=== PATIENT | male | born 1965 | race Caucasian/White ===

== ENCOUNTER 2017-12-11 16:01 | Emergency (ER) | payer OTHER, MEDICAID, SELFPAY ==
[2017-12-11 16:05] VITALS: BP 128/86; PULSE 76; RESP 13; TEMP 36.7; O2SAT 99
--- NOTE | 2017-12-11 16:40 | PC.NURSE ---
diagnosed with bipolar in the past, not taking meds at this time. pt feeling hopeless and no control in life, depression. has been having suicidal thoughts, strangeling neck, but not acted on it. denies taking any substance, pt willing to talk to someone, pt fearing going home, states, its all the same trap! pt denies injuries at this time, denies taking overdose on drugs. last contacted [facility] a month ago, evaluated and treated at [facility] 5-6 years ago. at this time, pt cooperative with care, with good eye contact, calm. reporting has not eaten. will get snacks for the pt.
--- NOTE | 2017-12-11 16:48 | ED_ITS ---
HPI - Anxiety <NAUN Willis - Last Filed: 12/11/17 22:24> General Chief Complaint: Anxiety Stated Complaint: ANXIOUS,PANIC,HEAD PRESSURE Time Seen by Provider: 12/11/17 16:48 Source: patient Mode of arrival: ambulatory Limitations: no limitations History of Present Illness HPI narrative: 52-year-old male with history of bipolar resume and depression that is a part-time smoker here for complaint of feeling depressed, anxious and also having suicidal ideation. He reports that he has been feeling like this for quite awhile now. He states that he has recently gone through a divorce. He states that for started after his ex attempted to commit suicide approximately 1 year ago. He states he does have a plan he states he would use a sheet to choke himself to with. However he does not feel like he can not act on it at this timeframe. He does agree to safety. Offered inpatient service to him and he states that he would have to take care of his dog 1st. He denies any other concerns or complaints at this time. He denies any recent alcohol or drug use. He denies any homicidal ideations. Review of Systems <NAUN Willis - Last Filed: 12/11/17 22:24> Constitutional Denies chills, Denies fever(s), Denies lethargy and Denies weakness Eyes Denies change in vision, Denies eye discharge, Denies irritation and Denies loss of vision ENT Ears, Nose, Mouth, and Throat: Denies change in voice, Denies neck pain and Denies sore throat Cardiovascular Denies chest pain, Denies irregular heart rhythm, Denies lightheadedness, Denies palpitations, Denies dyspnea, Denies dyspnea on exertion and Denies orthopnea Respiratory Denies cough, Denies dyspnea, Denies dyspnea on exertion and Denies wheezing Gastrointestinal Gastrointestinal: Denies abdominal pain, Denies change in bowel habits, Denies diarrhea, Denies nausea and Denies vomiting Genitourinary Denies hematuria, Denies flank pain, Denies urinary incontinence and Denies urinary urgency Musculoskeletal Denies neck pain Integumentary/Breasts Denies pruritus, Denies erythema, Denies rash and Denies wounds Neurologic Denies loss of vision and Denies weakness Psychiatric Comments: Suicidal ideation and depression Endocrine Denies palpitations Hematologic/Lymphatic Denies easy bruising Allergic/Immunologic Denies wheezing Exam <NAUN Willis - Last Filed: 12/11/17 22:24> Initial Vital Signs Initial Vital Signs: Vital Signs Temperature 98.1 F 12/11/17 16:05 Pulse Rate 76 12/11/17 16:05 Respiratory Rate 13 12/11/17 16:05 Blood Pressure 128/86 12/11/17 16:05 Pulse Oximetry 99 12/11/17 16:05 Const General: cooperative and well developed Nutritional Appearance: well nourished Orientation: alert, awake, oriented x3 and not confused [facility] Mouth: oral mucosae normal and moist mucous membranes Eyes Conjunctivae: conjunctivae normal Sclera: sclerae normal Pupils: PERRL EOM: EOM intact bilaterally Resp Effort & Inspection: normal respiratory effort, able to speak in complete sentences, no respiratory distress and no use of accessory muscles Auscultation: clear to auscultation bilaterally, no rales, no rhonchi and no wheezes Cardio Rate: regular rate Rhythm: regular rhythm Heart Sounds: no click, no gallops, no murmurs and no rubs Pulses: normal peripheral pulses GI Inspection: non-distended Palpation: soft, no hepatosplenomegaly, No guarding, No pulsatile mass and No tender Auscultation: normal bowel sounds Skin General: no rashes or lesions noted, No jaundice and No petechiae Neuro General: alert, oriented x3, gait normal and no focal motor deficits Speech: speech normal Psych Appearance: well kempt Mental Status: mental status grossly normal and other (sad) Speech and Movement: speech and movement normal Mood: other (sad) Affect: sad Attitude: cooperative Thought Process: normal Thought Content: normal Judgment: judgment good <Hilton June DO - Last Filed: 12/12/17 07:32> Initial Vital Signs Initial Vital Signs: Vital Signs Temperature 98.1 F 12/11/17 16:05 Pulse Rate 76 12/11/17 16:05 Respiratory Rate 13 12/11/17 16:05 Blood Pressure 128/86 12/11/17 16:05 Pulse Oximetry 99 12/11/17 16:05 Course <NAUN Willis - Last Filed: 12/11/17 22:24> Vital Signs - 8 hr 12/11/17 16:05 12/11/17 19:00 Temperature 98.1 F Pulse Rate 76 73 Respiratory Rate 13 16 Blood Pressure 128/86 Blood Pressure [Left Arm] 128/86 Pulse Oximetry 99 99 <Hilton June DO - Last Filed: 12/12/17 07:32> Vital Signs - 8 hr 12/11/17 16:05 12/11/17 19:00 Temperature 98.1 F Pulse Rate 76 73 Respiratory Rate 13 16 Blood Pressure 128/86 Blood Pressure [Left Arm] 128/86 Pulse Oximetry 99 99 MDM - Anxiety <NAUN Willis - Last Filed: 12/11/17 22:24> MDM Narrative Medical decision making narrative: Discussed inpatient services with him and patient states that he would not be able do so at this time could seek has to take care of his dog 1st. He did agree to safety over the next several days until he can get followed up. Discussed case with CD makes PE will call patient tomorrow on the phone to check up on him and get him an appointment on Wednesday for further evaluation and treatment. Patient is given at 1 [phone] crisis number as resource to call if things change in the short term or return to the emergency room. Patient is agreeable to the plan. Discharge Plan Departure Patient Disposition: Home Clinical Impression: Suicidal ideations Discharge Date/Time: 12/11/17 19:13 Interventions: ED Discharge Assessment Last Done: 12/11/17 19:13 Instructions: Depression Activity Restrictions/Additional Instructions: Mental health services will contact you tomorrow to check on new ensure year doing okay. They will schedule appointment on Wednesday for here for further evaluation and treatment and counseling. Call 1- [phone]. Which is crisis hotline if you need further assistance or if need help, you may also return to the emergency room for any worsening symptoms. Follow up with her primary care provider as well. Referrals: [facility] Jovon Benedict [Outside] <Hilton June DO - Last Filed: 12/12/17 07:32> Cosign ED Attending Raoulature Attestation: I was available for consultation during this patient's emergency department encounter
[2017-12-11 19:00] VITALS: BP 128/86; PULSE 73; RESP 16; O2SAT 99
--- NOTE | 2017-12-11 19:04 | PC.NURSE ---
pt states, that he will follow up with [facility] on wednesday, he needs to take care of dog first. pacing in the room, but cooperative with care.follows command
== END 2017-12-11 19:13 | disposition home or self-care (01) ==
PROVIDERS: Emergency Provider Nurse Practitioner Family
DX: R45.851 Suicidal ideations (principal)
CPT/HCPCS: 99282

== ENCOUNTER 2022-10-26 14:27 | Emergency (ER) | payer OTHER, MEDICAID, SELFPAY ==
[2022-10-26 14:45] VITALS: BP 162/101; PULSE 95; RESP 18; TEMP 37.1; O2SAT 99; BMI 21.5
--- NOTE | 2022-10-26 15:03 | DI.CT.S_ITS ---
PROCEDURE: CT ABDOMEN PELVIS W CON INDICATIONS: ? R inguinal hernia TECHNIQUE: After the administration of oral and IV contrast, axial sections were acquired from the lung bases to the pubic symphysis. Coronal and sagittal reformats were performed. For radiation dose reduction, the following was used: automated exposure control, adjustment of mA and/or kV according to patient size. COMPARISON: None. FINDINGS: Image quality: Excellent. Lung bases: Unremarkable. Heart: No significant findings. ABDOMEN: Liver: Unremarkable. Low-density nodules in liver are most likely hepatic cysts. Gallbladder: Unremarkable. Biliary ducts: Unremarkable. Pancreas: Unremarkable. Spleen: Unremarkable. Adrenal Glands: Unremarkable. Kidneys and Ureters: Unremarkable. Stomach and Bowel: Stomach, small bowel loops, and colon are unremarkable. Normal appendix. Diverticulosis without acute diverticulitis. Peritoneum: No abnormal intraperitoneal fluid. No free air. Ventral Wall: No hernia. Abdominal Nodes: No retroperitoneal or mesenteric adenopathy by size criteria. Vessels: Aorta and inferior vena cava are normal in size. PELVIS: Pelvic Organs: Prostate is markedly enlarged and heterogeneous in attenuation. Bladder: Unremarkable. Pelvic Nodes: No enlarged lymph nodes. Miscellaneous: Small fat containing inguinal hernias are seen. Hydroceles in scrotum. Bones: Unremarkable. IMPRESSION: 1. Small fat containing inguinal hernias bilaterally. 2. Hydroceles in scrotum. 3. Diverticulosis without diverticulitis. 4. Normal appendix. 5. Prostate is enlarged and heterogeneous. Dictated by: Luis Alberto Duarte M.D. on 10/26/2022 at 15:55 Approved by: Luis Alberto Duarte M.D. on 10/26/2022 at 15:59
--- NOTE | 2022-10-26 16:14 | ED_ITS ---
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 Patient states that it is more prominent when he is standing up versus lying back. Patient denies pain or ten derness at the site of the mass. Patient denies fever, chills, chest pain, shortness of breath, abdominal pain, dysuria, lightheadedness, dizziness, syncope. Related Data Home Medications Medication Instructions Recorded Confirmed No Known Home Medications 10/26/22 10/26/22 Allergies Allergy/AdvReac Type Severity Reaction Status Date / Time erythromycin base Allergy Unknown Verified 10/26/22 14:49 Review of Systems <Kristy Mejia PA-C - Last Filed: 10/26/22 17:26> Review of Systems ROS Unobtainable: All systems reviewed & are unremarkable except as noted in HPI and below Constitutional Constitutional: Denies chills, Denies fatigue, Denies fever(s), Denies frequent falls, Denies lethargy and Denies weakness Eyes Eyes: Denies change in vision, Denies eye discharge, Denies irritation and Denies loss of vision ENT Ears, Nose, Mouth, and Throat: Denies change in voice, Denies dizziness, Denies neck pain, Denies sore throat and Denies throat swelling Cardiovascular Cardiovascular: Denies chest pain, Denies irregular heart rhythm, Denies lightheadedness, Denies palpitations, Denies dyspnea, Denies dyspnea on exertion and Denies orthopnea Respiratory Respiratory: Denies cough, Denies dyspnea, Denies dyspnea on exertion and Denies wheezing Gastrointestinal Gastrointestinal: Reports as per HPI, Denies abdominal pain, Denies change in bowel habits, Denies diarrhea, Denies nausea and Denies vomiting Comments: Right Inguinal mass Genitourinary Genitourinary: Denies hematuria, Denies flank pain, Denies urinary incontinence and Denies urinary urgency Musculoskeletal Musculoskeletal: Denies back pain, Denies muscle weakness, Denies neck pain, Denies numbness and Denies tingling Integumentary/Breasts Skin/Breast: Denies pruritus, Denies erythema, Denies rash and Denies wounds Neurologic Neurologic: Denies behavioral changes, Denies confusion, Denies dizziness, Denies frequent falls, Denies loss of vision, Denies numbness, Denies tingling and Denies weakness Psychiatric Psychiatric: Denies anxiety, Denies behavioral changes, Denies confusion, Denies depression, Denies homicidal ideation and Denies suicidal ideation Endocrine Endocrine: Denies fatigue, Denies flushing and Denies palpitations Hematologic/Lymphatic Hematologic/Lymphatic: Denies easy bruising Allergic/Immunologic Allergic/Immunologic: Denies urticaria, Denies throat swelling and Denies wheezing Patient History <Kristy Mejia PA-C - Last Filed: 10/26/22 17:26> Social History Smoking Status: Current some day smoker Smoking Status: Current some day smoker alcohol intake frequency: a few times a month Substance Use Type: former substance user and marijuana Exam <Kristy Mejia PA-C - Last Filed: 10/26/22 17:26> Narrative Exam Narrative: Const General:?cooperative, healthy appearing and comfortable [facility] Head:?normal to inspection Ears:?hearing grossly normal bilaterally Nose:?external nose normal Face and sinus:?normal facial exam and sinuses nontender Mouth:?oral mucosae normal Throat:?posterior oropharynx normal Eyes General:?appearance normal, both eyes and all related structures Neck Neck:?normal visual inspection and no lymphadenopathy noted Resp Effort & Inspection:?normal respiratory effort Auscultation:?clear to auscultation bilaterally Cardio Rate:?regular rate Rhythm:?regular rhythm GI Abdomen is soft, nondistended. There is a palpable mass in the right inguinal area suspicious for a inguinal hernia. Not tender to palpation. Neuro General:?patient alert, patient awake and patient oriented x3 Initial Vital Signs Initial Vital Signs: Vital Signs Temperature 98.7 F 10/26/22 14:45 Pulse Rate 95 H 10/26/22 14:45 Respiratory Rate 18 10/26/22 14:45 Blood Pressure 162/101 H 10/26/22 14:45 Pulse Oximetry 99 10/26/22 14:45 Oxygen Delivery Method Room Air 10/26/22 14:45 <Betsy Roberts MD - Last Filed: 10/26/22 19:28> Initial Vital Signs Initial Vital Signs: Vital Signs Temperature 98.7 F 10/26/22 14:45 Pulse Rate 95 H 10/26/22 14:45 Respiratory Rate 18 10/26/22 14:45 Blood Pressure 162/101 H 10/26/22 14:45 Pulse Oximetry 99 10/26/22 14:45 Oxygen Delivery Method Room Air 10/26/22 14:45 Course <Kristy Mejia PA-C - Last Filed: 10/26/22 17:26> Orders Ordered: ED Orders 10/26/22 15:03 CT abdomen pelvis w con Stat 10/26/22 16:50 CBC Auto Diff [Complete Blood Count AUTO DIFF] Stat CMP [Comprehensive Metabolic Panel] Stat Lipase Stat Vital Signs Vital signs: Vital Signs - 8 hr 10/26/22 14:45 10/26/22 16:52 10/26/22 16:53 Temperature 98.7 F Pulse Rate 95 H 82 83 Respiratory Rate 18 Blood Pressure 162/101 H Pulse Oximetry 99 99 99 Oxygen Delivery Method Room Air 10/26/22 16:53 10/26/22 17:00 10/26/22 17:00 Temperature Pulse Rate 80 Respiratory Rate Blood Pressure 131/86 121/79 Pulse Oximetry 97 Oxygen Delivery Method <Betsy Roberts MD - Last Filed: 10/26/22 19:28> Orders Ordered: ED Orders 10/26/22 15:03 CT abdomen pelvis w con Stat 10/26/22 16:50 CBC Auto Diff [Complete Blood Count AUTO DIFF] Stat CMP [Comprehensive Metabolic Panel] Stat Lipase Stat Vital Signs Vital signs: Vital Signs - 8 hr 10/26/22 14:45 10/26/22 16:52 10/26/22 16:53 Temperature 98.7 F Pulse Rate 95 H 82 83 Respiratory Rate 18 Blood Pressure 162/101 H Pulse Oximetry 99 99 99 Oxygen Delivery Method Room Air 10/26/22 16:53 10/26/22 17:00 10/26/22 17:00 Temperature Pulse Rate 80 Respiratory Rate Blood Pressure 131/86 121/79 Pulse Oximetry 97 Oxygen Delivery Method Medical Decision Making <Kristy Mejia PA-C - Last Filed: 10/26/22 17:26> Lab Data 10/26/22 16:50 10/26/22 16:50 Labs: Lab Results 10/26/22 10/26/22 Range/Units 16:50 16:50 WBC 9.7 (4.5-11.0) X10^3/uL RBC 4.04 L (4.5-5.9) X10^6/uL Hgb 12.3 L (13.5-17.5) g/dL Hct 35.5 L (41-53) % MCV 88.0 (80-100) fL MCH 30.4 (26-34) PG MCHC 34.5 (30-36) % RDW 13.4 (11.6-14.8) % Plt Count 182 (150-400) X10^3/uL Neut % (Auto) 73.0 (50-75) % Lymph % (Auto) 20.2 L (25-40) % Chaves % (Auto) 6.1 (3-14) % Eos % (Auto) 0.3 L (2-4) % Baso % (Auto) 0.4 (0-2) % Neut # (Auto) 7100 H (4297-2912) /uL Lymph # (Auto) 2000 (3846-1566) /uL Chaves # (Auto) 600 (0-900) /uL Eos # (Auto) 0 (0-450) /uL Baso # (Auto) 0 (0-100) /uL Sodium 137 (137-145) mmol/L Potassium 3.7 (3.4-5.1) mmol/L Chloride 103 (98-107) mmol/L Carbon Dioxide 27 (22-32) mmol/L BUN 17 (9-20) mg/dL Creatinine 1.12 (0.66-1.25) mg/dL Estimated GFR > 60 (>60) mL/min BUN/Creatinine Ratio 15.2 (6-22) Glucose 114 H (70-100) mg/dL Calcium 9.3 (8.4-10.2) mg/dL Total Bilirubin 0.5 (0.2-1.3) mg/dL AST 24 (17-59) IU/L ALT 15 (<50) IU/L Alkaline Phosphatase 42 (38-126) U/L Total Protein 6.6 (6.3-8.2) g/dL Albumin 4.2 (3.5-5.0) g/dL Globulin 2.4 (1.7-4.1) g/dL Albumin/Globulin Ratio 1.8 (1.0-2.8) Lipase 81 (23-300) U/L MDM Narrative Medical decision making narrative: 56-year-old male with past medical history bipolar disorder presents to the ED with 1 month of right-sided inguinal mass. Concern for inguinal hernia versus other mass versus other. Will obtain UA, labs, CT abdomen pelvis. Will reassess. CT abdomen pelvis shows small fat containing inguinal hernias bilaterally, hydroceles in scrotum, enlarged and heterogeneous prostate. Labs within normal limits. Discussed findings with patient. Recommend follow-up with urology and GI. ED return precautions discussed with patient. Patient verbalized understanding. Medical records reviewed: Yes <Betsy Roberts MD - Last Filed: 10/26/22 19:28> Lab Data Labs: Lab Results 10/26/22 10/26/22 Range/Units 16:50 16:50 WBC 9.7 (4.5-11.0) X10^3/uL RBC 4.04 L (4.5-5.9) X10^6/uL Hgb 12.3 L (13.5-17.5) g/dL Hct 35.5 L (41-53) % MCV 88.0 (80-100) fL MCH 30.4 (26-34) PG MCHC 34.5 (30-36) % RDW 13.4 (11.6-14.8) % Plt Count 182 (150-400) X10^3/uL Neut % (Auto) 73.0 (50-75) % Lymph % (Auto) 20.2 L (25-40) % Chaves % (Auto) 6.1 (3-14) % Eos % (Auto) 0.3 L (2-4) % Baso % (Auto) 0.4 (0-2) % Neut # (Auto) 7100 H (9404-1601) /uL Lymph # (Auto) 2000 (0157-0285) /uL Chaves # (Auto) 600 (0-900) /uL Eos # (Auto) 0 (0-450) /uL Baso # (Auto) 0 (0-100) /uL Sodium 137 (137-145) mmol/L Potassium 3.7 (3.4-5.1) mmol/L Chloride 103 (98-107) mmol/L Carbon Dioxide 27 (22-32) mmol/L BUN 17 (9-20) mg/dL Creatinine 1.12 (0.66-1.25) mg/dL Estimated GFR > 60 (>60) mL/min BUN/Creatinine Ratio 15.2 (6-22) Glucose 114 H (70-100) mg/dL Calcium 9.3 (8.4-10.2) mg/dL Total Bilirubin 0.5 (0.2-1.3) mg/dL AST 24 (17-59) IU/L ALT 15 (<50) IU/L Alkaline Phosphatase 42 (38-126) U/L Total Protein 6.6 (6.3-8.2) g/dL Albumin 4.2 (3.5-5.0) g/dL Globulin 2.4 (1.7-4.1) g/dL Albumin/Globulin Ratio 1.8 (1.0-2.8) Lipase 81 (23-300) U/L Discharge Plan Departure Patient Disposition: Home Clinical Impression: Inguinal hernia Instructions: Groin Hernia -- Adult Activity Restrictions/Additional Instructions: You were evaluated in the ED today for a lower abdominal mass. Your labs were normal. Your CT abdomen pelvis shows small fat containing inguinal hernias on both sides. There are also hydroceles in the scrotum and your prostate is enlarged. Please follow-up with a GI specialist and urologist as soon as possible. Return to the ED if you have worsening symptoms, abdominal pain, persistent vomiting. Prescriptions: No Action No Known Home Medications Stand Alone Forms: Patient Portal/API <Betsy Roberts MD - Last Filed: 10/26/22 19:28> Cosign ED Attending Melva Attestation: I do not see this patient. I was available at all times for consultation.
[2022-10-26 16:52] VITALS: PULSE 82; O2SAT 99
[2022-10-26 16:53] VITALS: BP 131/86; PULSE 83; O2SAT 99
[2022-10-26 17:00] VITALS: BP 121/79; PULSE 80; O2SAT 97
[2022-10-26 17:04] LABS: Add Manual Diff / Slide Review NO; Basophils Absolute Auto 0 /uL (0-100); Basophils Percent Auto 0.4 % (0-2); Eosinophils Absolute Auto 0 /uL (0-450); Eosinophils Percent Auto 0.3 % (2-4); Hematocrit 35.5 % (41-53); Hemoglobin 12.3 g/dL (13.5-17.5); Lymphocytes Absolute Auto 2000 /uL (1100-4500); Lymphocytes Percent Auto 20.2 % (25-40); Mean Corpuscular HGB Conc 34.5 % (30-36); Mean Corpuscular Hemoglobin 30.4 PG (26-34); Monocytes Absolute Auto 600 /uL (0-900); Monocytes Percent Auto 6.1 % (3-14); Neutrophils Absolute Auto 7100 /uL (1500-7000); Platelet Count 182 X10^3/uL (150-400); Red Blood Cell Count 4.04 X10^6/uL (4.5-5.9); Red Cell Distribution Width 13.4 % (11.6-14.8); White Blood Cell Count 9.7 X10^3/uL (4.5-11.0)
[2022-10-26 17:15] LABS: Alanine Aminotransferase 15 IU/L (<50); Albumin 4.2 g/dL (3.5-5.0); Albumin Globulin Ratio 1.8 (1.0-2.8); Alkaline Phosphatase 42 U/L (38-126); Aspartate Aminotransferase 24 IU/L (17-59); BUN Creatinine Ratio 15.2 (6-22); Bilirubin Total 0.5 mg/dL (0.2-1.3); Blood Urea Nitrogen 17 mg/dL (9-20); Calcium 9.3 mg/dL (8.4-10.2); Carbon Dioxide 27 mmol/L (22-32); Chloride 103 mmol/L (98-107); Estimated Glomerular Filt Rate > 60 mL/min (>60); Globulin 2.4 g/dL (1.7-4.1); Glucose 114 mg/dL (70-100); HEMOLYSIS < 15 (0-50); Lipase 81 U/L (23-300); Potassium 3.7 mmol/L (3.4-5.1); Sodium 137 mmol/L (137-145); Total Protein 6.6 g/dL (6.3-8.2)
== END 2022-10-26 17:29 | disposition home or self-care (01) ==
PROVIDERS: Emergency Provider Student in an Organized Health Care Education/Training Program
DX: K40.90 Unilateral inguinal hernia, without obstruction or gangrene, not specified as recurrent (principal)
CPT/HCPCS: 36415; 74177; 80053; 83690; 85025; 99283; 99284; Q9967

== ENCOUNTER → 2023-05-10 14:06 | Outpatient (CLI) | payer OTHER, MEDICAID, SELFPAY ==
[2023-05-10 15:05] LABS: Add Manual Diff / Slide Review NO; Basophils Absolute Auto 0 /uL (0-100); Basophils Percent Auto 0.3 % (0-2); Eosinophils Absolute Auto 0 /uL (0-450); Eosinophils Percent Auto 0.5 % (2-4); Hematocrit 38.5 % (41-53); Hemoglobin 13.1 g/dL (13.5-17.5); Lymphocytes Absolute Auto 2400 /uL (1100-4500); Lymphocytes Percent Auto 28.8 % (25-40); Mean Corpuscular Hemoglobin 29.8 PG (26-34); Mean Corpuscular Volume 87.6 fL (80-100); Monocytes Absolute Auto 600 /uL (0-900); Monocytes Percent Auto 7.4 % (3-14); Neutrophils Absolute Auto 5200 /uL (1500-7000); Platelet Count 205 X10^3/uL (150-400); Red Blood Cell Count 4.39 X10^6/uL (4.5-5.9); Red Cell Distribution Width 13.5 % (11.6-14.8); White Blood Cell Count 8.3 X10^3/uL (4.5-11.0)
[2023-05-10 15:13] LABS: Hemoglobin A1C% w Est Avg Glu 5.2 % (4.0-6.0)
[2023-05-10 15:28] LABS: Alanine Aminotransferase 21 IU/L (<50); Albumin 4.3 g/dL (3.5-5.0); Albumin Globulin Ratio 1.6 (1.0-2.8); Alkaline Phosphatase 51 U/L (38-126); Aspartate Aminotransferase 25 IU/L (17-59); Bilirubin Total 0.6 mg/dL (0.2-1.3); Blood Urea Nitrogen 17 mg/dL (9-20); Calcium 9.3 mg/dL (8.4-10.2); Carbon Dioxide 31 mmol/L (22-32); Chloride 105 mmol/L (98-107); Cholesterol 196 mg/dL (140-199); Estimated Glomerular Filt Rate > 60 mL/min (>60); Globulin 2.7 g/dL (1.7-4.1); Glucose 91 mg/dL (70-100); HDL Cholesterol 63 mg/dL (40-60); HEMOLYSIS < 15 (0-50); LDL Cholesterol Calculated 111 mg/dL (<100); Potassium 4.7 mmol/L (3.4-5.1); Sodium 139 mmol/L (137-145); Triglycerides 108 mg/dL (35-150)
[2023-05-10 15:56] LABS: Prostate Specific Antigen 4.06 ng/mL (0.10-4.00)
[2023-05-10 17:12] LABS: HIV 1 & 2 Ab/Ag 4th Gen Combo NEGATIVE (NEGATIVE); Hep C Virus Ab w/Reflex Quant NEGATIVE s/c (NEGATIVE)
== END ==
PROVIDERS: PCP Family Medicine; Referring Provider Family Medicine; Visit Provider Family Medicine
DX: Z76.89 Persons encountering health services in other specified circumstances (principal); Z11.59 Encounter for screening for other viral diseases; Z11.4 Encounter for screening for human immunodeficiency virus [HIV]; Z13.220 Encounter for screening for lipoid disorders; Z12.5 Encounter for screening for malignant neoplasm of prostate; Z13.1 Encounter for screening for diabetes mellitus
CPT/HCPCS: 36415; 80053; 80061; 83036; 84153; 85025; 86803; 87389

== ENCOUNTER → 2023-07-01 11:19 | Outpatient (CLI) | payer OTHER, MEDICAID, SELFPAY | PROVIDERS: PCP Family Medicine; Referring Provider Family Medicine; Visit Provider Family Medicine | DX: Z12.5 Encounter for screening for malignant neoplasm of prostate (principal) | CPT/HCPCS: 36415; G0103 ==

== ENCOUNTER 2024-05-20 22:47 | Emergency (ER) | payer OTHER, SELFPAY ==
[2024-05-20 22:49] VITALS: BP 153/92; PULSE 81; O2SAT 93
[2024-05-20 22:51] VITALS: BP 143/90; PULSE 86; O2SAT 93
[2024-05-20 22:54] VITALS: BMI 27.8
--- NOTE | 2024-05-20 22:57 | DI.RAD.S_ITS ---
PROCEDURE: XR CHEST 1V INDICATIONS: chest pain TECHNIQUE: One view of the chest was acquired. COMPARISON: None. FINDINGS: Surgical changes and devices: None. Lungs and pleura: Lungs are clear. No pleural effusions or pneumothorax. Mediastinum: Mediastinal contours appear normal. Heart size is normal. Bones and chest wall: No suspicious bony lesions. Overlying soft tissues appear unremarkable. IMPRESSION: No acute cardiopulmonary abnormality is seen. Dictated by: Adal Ortiz M.D. on 05/21/2024 at 0:52 Approved by: Adal Ortiz M.D. on 05/21/2024 at 0:53
[2024-05-20 23:00] VITALS: BP 165/101; PULSE 80; O2SAT 92
--- NOTE | 2024-05-20 23:22 | EKG_ITS ---
[facility] [address] [place] [id number] Test Date: 2024-05-20 Pat Name: Ilir Clark Department: 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
[2024-05-20] MEDS: PANTOPRAZOLE 40 MG VIAL IV (23:23)
[2024-05-20 23:25] LABS: Add Manual Diff / Slide Review NO; Basophils Absolute Auto 0 /uL (0-100); Basophils Percent Auto 0.3 % (0-2); Eosinophils Absolute Auto 0 /uL (0-450); Eosinophils Percent Auto 0.1 % (2-4); Hematocrit 43.5 % (41-53); Lymphocytes Absolute Auto 1300 /uL (1100-4500); Lymphocytes Percent Auto 8.7 % (25-40); Mean Corpuscular HGB Conc 34.4 % (30-36); Mean Corpuscular Hemoglobin 29.8 PG (26-34); Mean Corpuscular Volume 86.8 fL (80-100); Monocytes Absolute Auto 800 /uL (0-900); Monocytes Percent Auto 5.7 % (3-14); Neutrophils Absolute Auto 12400 /uL (1500-7000); Neutrophils Percent Auto 85.2 % (50-75); Platelet Count 218 X10^3/uL (150-400); Red Blood Cell Count 5.01 X10^6/uL (4.5-5.9); Red Cell Distribution Width 13.6 % (11.6-14.8); White Blood Cell Count 14.5 X10^3/uL (4.5-11.0)
[2024-05-20 23:30] VITALS: BP 135/84; PULSE 81; O2SAT 93
[2024-05-20 23:33] LABS: Lactate (Lactic Acid) 1.2 mmol/L (0.7-2.1)
[2024-05-20 23:34] LABS: Alanine Aminotransferase 23 IU/L (<50); Albumin 4.9 g/dL (3.5-5.0); Albumin Globulin Ratio 1.8 (1.0-2.8); Alkaline Phosphatase 62 U/L (38-126); Aspartate Aminotransferase 28 IU/L (17-59); BUN Creatinine Ratio 13.6 (6-22); Bilirubin Total 0.6 mg/dL (0.2-1.3); Blood Urea Nitrogen 15 mg/dL (9-20); Calcium 9.9 mg/dL (8.4-10.2); Carbon Dioxide 31 mmol/L (22-32); Chloride 98 mmol/L (98-107); Estimated Glomerular Filt Rate > 60 mL/min (>60); Globulin 2.8 g/dL (1.7-4.1); Glucose 117 mg/dL (70-100); HEMOLYSIS < 15 (0-50); Lipase 88 U/L (23-300); Magnesium 1.7 mg/dL (1.6-2.3); Potassium 4.2 mmol/L (3.4-5.1); Sodium 140 mmol/L (137-145); Total Protein 7.7 g/dL (6.3-8.2)
[2024-05-20 23:46] LABS: Troponin I < 0.012 ng/mL (0.01-0.034)
[2024-05-21] VITALS (8 sets, daily range): BP systolic 116–149; BP diastolic 67–88; PULSE 66–83; RESP 18; O2SAT 93–96
--- NOTE | 2024-05-21 02:20 | ED_ITS ---
HPI - Nausea/Vomiting/Diarrhea General Chief complaint: Nausea/Vomiting/Diarrhea Stated complaint: GERD Time Seen by Provider: 05/20/24 22:47 Source: patient Mode of arrival: EMS History of Present Illness HPI Narrative: 58-year-old gentleman with a history of bipolar depression and anxiety presents from [facility] today complaining chest pressure with reflux symptoms. She states he has had reflux for a number of years, today he has had increased reflux type symptoms with an episode of nausea and vomiting in the evening today. Concerned that he is having some chest pressure and comes in for further evaluation. He has not describing any exertional dyspnea, orthopnea has not had palpitations. No fevers, cough, chills. He has intermittently been on proton pump inhibitors in the past but does not currently taking anything. Related Data Home Medications Medication Instructions Recorded Confirmed lurasidone 20 mg tablet 20 mg PO QPM 04/17/24 04/17/24 Previous Rx's Medication Instructions Recorded omeprazole 40 mg capsule,delayed 40 mg PO DAILY #14 caps 05/21/24 release Allergies Allergy/AdvReac Type Severity Reaction Status Date / Time erythromycin base Allergy Unknown Verified 04/17/24 13:51 Review of Systems Review of Systems Narrative: Pertinent positive and negative findings as per HPI Patient History Medical History (Updated 05/21/24 @ 02:36 by Lolita Fernández MD) Anxiety disorder, unspecified Bipolar I disorder, current or most recent episode depressed, in partial remission Social History Smoking Status: Current some day smoker Smoking Status: Current some day smoker alcohol intake frequency: a few times a month Exam Initial Vital Signs Initial Vital Signs: Vital Signs Pulse Rate 81 05/20/24 22:49 Blood Pressure 153/92 H 05/20/24 22:49 Pulse Oximetry 93 05/20/24 22:49 General: in no acute distress. Able to give a complete and coherent history. Well-nourished well-developed HEENT: Moist mucous membranes, normal sclera with reactive pupils, Respiratory: Lungs are clear to auscultation, no wheezing no rales no rhonchi. Full and symmetrical air movement Cardiac: Regular rate and rhythm no murmurs no bruits Abdomen: Soft, nontender, no rebound or guarding, no flank pain Skin: Pale, Warm and dry, no rashes Neurologic: Grossly neurologically intact with no obvious asymmetries or abnormalities Extremities: No trauma, well perfused Psych: Anxious, somewhat flat affect and poor eye contact but appropriate speech fluency and thought content Course Orders Ordered: ED Orders 05/20/24 22:57 XR chest 1V Stat EKG-12 Lead Stat 05/20/24 23:07 Complete Blood Count AUTO DIFF Stat Comprehensive Metabolic Panel Stat Lactate (Lactic Acid) Stat Lipase Stat Magnesium Stat Troponin I Stat Discontinued Medications Pantoprazole Sodium (Pantoprazole 40 Mg Vial) 40 mg IV NOW ONE Stop: 05/20/24 22:57 Last Admin: 05/20/24 23:23 Dose: 40 mg Documented By: Tanner Vital Signs Vital signs: Vital Signs - 8 hr 05/20/24 22:49 05/20/24 22:51 05/20/24 23:00 Pulse Rate 81 86 80 Respiratory Rate Blood Pressure 153/92 H 143/90 H 165/101 H Pulse Oximetry 93 93 92 05/20/24 23:30 05/20/24 23:30 05/21/24 00:00 Pulse Rate 81 69 Respiratory Rate Blood Pressure 135/84 Pulse Oximetry 93 94 05/21/24 00:00 05/21/24 00:30 05/21/24 00:30 Pulse Rate 69 Respiratory Rate Blood Pressure 144/82 H 129/85 Pulse Oximetry 94 05/21/24 01:00 05/21/24 01:00 Pulse Rate 66 Respiratory Rate 18 Blood Pressure 149/80 H Pulse Oximetry 93 MDM - Nausea/Vomiting/Diarrhea Lab Data 05/20/24 23:07 05/20/24 23:07 Labs: Lab Results 05/20/24 Range/Units 23:07 WBC 14.5 H (4.5-11.0) X10^3/uL RBC 5.01 (4.5-5.9) X10^6/uL Hgb 15.0 (13.5-17.5) g/dL Hct 43.5 (41-53) % MCV 86.8 (80-100) fL MCH 29.8 (26-34) PG MCHC 34.4 (30-36) % RDW 13.6 (11.6-14.8) % Plt Count 218 (150-400) X10^3/uL Neut % (Auto) 85.2 H (50-75) % Lymph % (Auto) 8.7 L (25-40) % Charles % (Auto) 5.7 (3-14) % Eos % (Auto) 0.1 L (2-4) % Baso % (Auto) 0.3 (0-2) % Neut # (Auto) 28117 H (3008-2630) /uL Lymph # (Auto) 1300 (9984-9768) /uL Charles # (Auto) 800 (0-900) /uL Eos # (Auto) 0 (0-450) /uL Baso # (Auto) 0 (0-100) /uL Sodium 140 (137-145) mmol/L Potassium 4.2 (3.4-5.1) mmol/L Chloride 98 (98-107) mmol/L Carbon Dioxide 31 (22-32) mmol/L BUN 15 (9-20) mg/dL Creatinine 1.10 (0.66-1.25) mg/dL Estimated GFR > 60 (>60) mL/min BUN/Creatinine Ratio 13.6 (6-22) Glucose 117 H (70-100) mg/dL Lactate 1.2 (0.7-2.1) mmol/L Calcium 9.9 (8.4-10.2) mg/dL Magnesium 1.7 (1.6-2.3) mg/dL Total Bilirubin 0.6 (0.2-1.3) mg/dL AST 28 (17-59) IU/L ALT 23 (<50) IU/L Alkaline Phosphatase 62 (38-126) U/L Troponin I < 0.012 (0.01-0.034) ng/mL Total Protein 7.7 (6.3-8.2) g/dL Albumin 4.9 (3.5-5.0) g/dL Globulin 2.8 (1.7-4.1) g/dL Albumin/Globulin Ratio 1.8 (1.0-2.8) Lipase 88 (23-300) U/L MDM Narrative Medical decision making narrative: CC: Chest pressure with reflux symptoms worsening over the course of today Complicating co-morbidities: Anxiety, bipolar depression Data collected from: patient, medic Social determinants of health that may influence the patients condition: Patient lives in [facility] Medical records reviewed: Primary care and Psychiatry notes are reviewed Differential considered: Viral gastroenteritis, increased anxiety, reflux, acute coronary syndrome, unstable angina Exam documented above, pertinent findings include: Patient is somewhat pale, anxious, heart and lungs are benign, belly does not have any significant tenderness no rebound or guarding Lab Test results independently reviewed as above. Pertinent findings: CBC: White count is elevated at 14.5 with 85% neutrophil Chemistries are reassuring, no electrolyte abnormalities Lactic is not elevated Troponin is undetectable Lipase is not elevated Independently reviewed EKG: Sinus rhythm at a rate of 75. No acute ischemic Imaging studies independently reviewed: Chest x-ray is reassuring. Treatments: IV pantoprazole Re-evaluations: Given the leukocytosis, belly is again re-examined. He states that the pantoprazole has essentially resolved his pain, he has no rebound or guarding, no abdominal tenderness. No other source of infection is identified it is time. Discussion: 58-year-old gentleman with increasing reflux symptoms over the last 24 hour culminating in emesis today that made symptoms even worse. Cardiac workup is unremarkable with no suggestion of acute coronary syndrome. No obvious bacterial infection is clearly identified and IV pantoprazole has been helpful in resolving his symptoms. We talked about a 2 week course of omeprazole to try to calm down his current issues and then using omeprazole and/or Tums as needed from there. I did recommend that he follow up with his primary care physician. At this time I am not seeing evidence of sepsis, intra- abdominal infection, acute coronary syndrome, pulmonary embolism or alternate explanation that would require further workup or hospitalization and he is safe for discharge Discharge Plan Departure Patient Disposition: Home Clinical Impression: Chest pain due to GERD Instructions: DI for Heartburn Activity Restrictions/Additional Instructions: Thank you for coming in today Your workup was actually very reassuring. There was no concern for bleeding from your stomach, heart attack or heart attack like syndrome. Your white blood cell count was slightly elevated but on clinical exam I did not find any evidence for acute bacterial infection. We discussed a 2 week course of omeprazole, an acid reduce her medication to see if this might make your heartburn symptoms improve. I have sent a prescription for omeprazole to 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 I would recommend a follow up appointment with your primary care physician. If you find that you are getting worse or develop any new symptoms, please feel free to return to the emergency department for further evaluation. Prescriptions: New omeprazole 40 mg capsule,delayed release(DR/EC) 40 mg PO DAILY Qty: 14 0RF No Action lurasidone 20 mg tablet 20 mg PO QPM Rx Instructions: must administer with food (at least 350 calories) Start with one tablet with dinner each evening for one week Referrals: Edgar Saenz MD [Primary Care Provider] - Stand Alone Forms: Patient Portal/API/Survey
== END 2024-05-21 06:43 | disposition home or self-care (01) ==
PROVIDERS: Emergency Provider Emergency Medicine; PCP Family Medicine
DX: K21.9 Gastro-esophageal reflux disease without esophagitis (principal)
CPT/HCPCS: 36415; 71045; 80053; 83605; 83690; 83735; 84484; 85025; 93005; 93010; 96374; 99284; J2470

== ENCOUNTER → 2024-07-04 09:51 | Outpatient (CLI) | payer OTHER, SELFPAY ==
[2024-07-04 11:10] LABS: Add Manual Diff / Slide Review NO; Basophils Absolute Auto 0 /uL (0-100); Basophils Percent Auto 0.3 % (0-2); Eosinophils Absolute Auto 100 /uL (0-450); Eosinophils Percent Auto 0.9 % (2-4); Hematocrit 40.5 % (41-53); Lymphocytes Absolute Auto 2300 /uL (1100-4500); Lymphocytes Percent Auto 25.4 % (25-40); Mean Corpuscular HGB Conc 34.5 % (30-36); Mean Corpuscular Hemoglobin 29.8 PG (26-34); Mean Corpuscular Volume 86.6 fL (80-100); Monocytes Absolute Auto 600 /uL (0-900); Monocytes Percent Auto 6.6 % (3-14); Neutrophils Absolute Auto 6100 /uL (1500-7000); Neutrophils Percent Auto 66.8 % (50-75); Platelet Count 232 X10^3/uL (150-400); Red Blood Cell Count 4.68 X10^6/uL (4.5-5.9); Red Cell Distribution Width 13.3 % (11.6-14.8); White Blood Cell Count 9.1 X10^3/uL (4.5-11.0)
== END ==
PROVIDERS: PCP Family Medicine; Referring Provider Family Medicine; Visit Provider Family Medicine
DX: D72.829 Elevated white blood cell count, unspecified (principal)
CPT/HCPCS: 36415; 85025

== ENCOUNTER → 2024-07-18 15:59 | Outpatient (CLI) | payer OTHER, SELFPAY ==
[2024-07-18 16:23] LABS: Add Manual Diff / Slide Review NO; Basophils Absolute Auto 0 /uL (0-100); Basophils Percent Auto 0.5 % (0-2); Eosinophils Absolute Auto 100 /uL (0-450); Eosinophils Percent Auto 0.7 % (2-4); Hematocrit 41.2 % (41-53); Hemoglobin 13.8 g/dL (13.5-17.5); Lymphocytes Absolute Auto 2000 /uL (1100-4500); Lymphocytes Percent Auto 23.7 % (25-40); Mean Corpuscular HGB Conc 33.5 % (30-36); Mean Corpuscular Hemoglobin 29.2 PG (26-34); Mean Corpuscular Volume 87.2 fL (80-100); Monocytes Absolute Auto 500 /uL (0-900); Monocytes Percent Auto 6.3 % (3-14); Neutrophils Absolute Auto 5800 /uL (1500-7000); Neutrophils Percent Auto 68.8 % (50-75); Platelet Count 200 X10^3/uL (150-400); Red Blood Cell Count 4.72 X10^6/uL (4.5-5.9); Red Cell Distribution Width 13.2 % (11.6-14.8); White Blood Cell Count 8.4 X10^3/uL (4.5-11.0)
[2024-07-18 16:53] LABS: BUN Creatinine Ratio 13.6 (6-22); Blood Urea Nitrogen 14 mg/dL (9-20); Calcium 9.6 mg/dL (8.4-10.2); Carbon Dioxide 24 mmol/L (22-32); Chloride 105 mmol/L (98-107); Cholesterol 224 mg/dL (140-199); Estimated Glomerular Filt Rate > 60 mL/min (>60); Glucose 94 mg/dL (70-99); HDL Cholesterol 46 mg/dL (40-60); HEMOLYSIS < 15 (0-50); LDL Cholesterol Calculated 144 mg/dL (<100); Potassium 4.4 mmol/L (3.4-5.1); Sodium 137 mmol/L (137-145); Triglycerides 172 mg/dL (35-150)
[2024-07-18 17:26] LABS: TSH w/ Reflex to FT4 1.66 uIU/mL (0.47-4.68)
== END ==
PROVIDERS: PCP Family Medicine; Referring Provider Family Medicine; Visit Provider Family Medicine
DX: E78.00 Pure hypercholesterolemia, unspecified (principal); D64.9 Anemia, unspecified; K40.90 Unilateral inguinal hernia, without obstruction or gangrene, not specified as recurrent; Z68.27 Body mass index [BMI] 27.0-27.9, adult
CPT/HCPCS: 36415; 80048; 80061; 84443; 85025; 99213

== ENCOUNTER 2024-08-09 07:15 | Day surgery (SDC) | payer OTHER, SELFPAY ==
[2024-08-02 11:56] VITALS: BMI 27.8
[2024-08-09 07:55] VITALS: BP 148/91; PULSE 68; RESP 16; TEMP 36.2; O2SAT 99; BMI 25.6
[2024-08-09] MEDS: LACTATED RINGERS 1,000 ML 84 ML IV (08:22)
--- NOTE | 2024-08-09 08:27 | PM.PREOP ---
Pre-operative Note COVID-19 COVID-19 status: Not tested Interval Note History & Physical reviewed/Exam performed by Physician: Yes Changes to H&P: No ASA Class (for procedural sedation): II
[2024-08-09] MEDS: CEFAZOLIN 2 GM/100 ML PREMIX 100 ML IV (08:55)
--- NOTE | 2024-08-09 08:55 | SUR.OPER ---
Supine on padded OR bed, head on pillow, arms padded and tucked at sides, legs uncrossed, safety belt at thigh, tape over blanket over lower legs .
--- NOTE | 2024-08-09 10:59 | P.OP_ITS ---
Operative Date/Time/Diagnoses Date of procedure: 08/09/24 Time of procedure: 10:59 Pre-op diagnosis: Right inguinal hernia Post-op diagnosis: other (Bilateral inguinal hernia) Procedure & Clinicians Procedure: Robotic bilateral inguinal hernia repair with mesh Same procedure(s) as scheduled: Yes Surgeon: Nilson Khan Sales Account Associate: Donato Maier Anesthesia Type: General Operative Notes Findings: Bilateral pantaloon hernia defects, predominant direct defects Applied: none Estimated Blood Loss (mL): 10 Procedure in detail: The patient was given preoperative antibiotics. The patient was brought to the operating room, placed on the table in the supine position with the arms tucked and general anesthesia was induced. The abdomen was prepped and draped in the usual fashion. A time-out was performed. A 1 cm transverse incision was created superior to the umbilicus and dissection was carried down to the fascia. The fascia was scored transversely with cautery. The fascia was grasped with a Sherley clamp to elevate the abdominal wall. A Peon clamp was used to carrizales the peritoneum. The 12 mm robotic port was placed and the abdomen was insufflated to 15 mmHg. The camera was inserted, there was no evidence of any injury from the entry. There was an obvious right direct defect with a smaller right indirect defect. There was less obvious left indirect defect. 8 mm ports were placed under direct vision in the mid left and mid right abdomen. The patient was positioned in Trendelenburg. The robot was docked. We started on the right side which was the more symptomatic side. We created a right peritoneal flap. The peritoneum was dissected off the right cord structures and the Moisés's ligament was exposed. The pubis was exposed to the the midline. There was a large direct defect with a smaller indirect defect. A large right Bard 3DMax mesh was brought in and placed over the defect with the medial edge overlapping the pubic symphysis. It was secured to Moisés's ligament with 2 separate interrupted stitches with 3-0 Vicryl. The defect was closed with a running 3-0 barbed stitch. There was an additional peritoneal defect which was closed with a separate running 3-0 barbed stitch. Next we moved to the left side. We created left peritoneal flap. The peritoneum was dissected off the left cord structures and the Moisés's ligament was exposed. We dissected medially until the two dissections were connected in the medial portion of the right-sided mesh was visible. There was a larger direct defect and a smaller indirect defect. A large left Bard 3DMax mesh was brought in and placed over the defect with the medial edge overlapping the pubic symphysis. We secured the left and right meshes to each other midline with 3-0 Vicryl stitch. The left peritoneal flap was closed with a running 3-0 barbed stitch We took one last look around the abdomen and saw no other abnormalities. The suture was removed and accounted for. The robot was undocked. The 8 mm ports were removed under direct vision. The abdomen was desufflated. The 12 mm port was removed. Additional local was injected into the fascia and the fascial incision was closed with 2 interrupted 0 Vicryl sutures. The skin incisions were closed with 4 Monocryl, Steri-Strips and Band-Aids. Donato ROCK provided assistance with exposure, retraction and closure of incisions. EBL: 10 mL Complications: none Post-operative Condition: stable Disposition: PACU
[2024-08-09] MEDS: BUPIVACAINE 0.5% (PF) 30 ML VIAL INJ (11:00)
[2024-08-09] MEDS: LACTATED RINGERS 1,000 ML 42 ML IV (11:09)
[2024-08-09 11:10] VITALS: BP 145/93; PULSE 81; RESP 15; TEMP 36.6; O2SAT 95
[2024-08-09 11:15] VITALS: BP 133/72; PULSE 76; RESP 10; O2SAT 96
--- NOTE | 2024-08-09 11:18 | SUR.PHASEI ---
Report given to Jarvis
[2024-08-09 11:25] VITALS: BP 131/75; PULSE 91; RESP 12; TEMP 36.3; O2SAT 95
[2024-08-09] MEDS: ONDANSETRON 4 MG/2 ML INJ IV (11:25)
[2024-08-09] MEDS: hydrOXYzine 50 MG/ML INJ 25 MG IM (11:25)
[2024-08-09] MEDS: OXYCODONE IR 5 MG TABLET PO (11:26)
[2024-08-09 11:33] VITALS: BP 123/82; PULSE 61; RESP 12; TEMP 36.2; O2SAT 95
[2024-08-09] MEDS: fentaNYL 100 MCG/2 ML INJ IV (11:46)
--- NOTE | 2024-08-09 11:52 | SUR.PHASEII ---
Patient unable to rate pain but reported intense pain. Medicated with fentanyl; continuous pulse ox in place. Maria Elena Freed notified, new orders pending.
[2024-08-09] MEDS: ACETAMINOPHEN 325 MG TABLET 975 MG PO (12:01)
--- NOTE | 2024-08-09 12:05 | SUR.PHASEII ---
Report given to Ellen.
[2024-08-09 13:20] VITALS: BP 128/79; PULSE 67; TEMP 36.3; O2SAT 96
--- NOTE | 2024-08-09 13:24 | SUR.PHASEII ---
Patient up the bathroom x2 and reportedlu voided a very small amount. Patient reported feeling that his bladder was still full. Returned patient to the stretcher and a bladder scan showed 127mls. Patient reported having a history of difficulty emptying his bladder due to his prostate but that he has never had this much trouble. Dr. Khan was notified while he was in the OR. MD to speak with patient once finished with the current case. Patient has currently returned to the bathroom.
--- NOTE | 2024-08-09 14:42 | SUR.PHASEII ---
Patient stayed in the bathroom for an extended time, asked for a depends, which was provided. Dr. Khan came to speak to patient, patient came out of the bathroom to speak with MD. ordered a herring catheter for d/c per patient request. 16F herring placed by JAKOB Conley. 400mls clear urine drained. Leg bag placed. Patient shown how to care for and empty the large bag and leg bag. Patient expressed understanding. Patient's ride, his father, stated he needed to leave to [place] the [place] ferry due to groceries in his car. Patient reported his pain had improved to mild.
== END 2024-08-09 14:15 | disposition home or self-care (01) ==
PROVIDERS: PCP Family Medicine; Referring Provider Surgery; Visit Provider Surgery
PROC: 0YQ54ZZ Repair Right Inguinal Region, Percutaneous Endoscopic Approach (ICD-10-PCS; CPT 49650; principal; 2024-08-09 08:45)
DX: K40.20 Bilateral inguinal hernia, without obstruction or gangrene, not specified as recurrent (principal); R53.83 Other fatigue; Z12.5 Encounter for screening for malignant neoplasm of prostate; R33.8 Other retention of urine; G89.18 Other acute postprocedural pain
CPT/HCPCS: 49650; 20985; 51798; 82306; 82607; 82728; 83540; 83550; 83921; 84402; 84403; 99282; G0103; C1781; J0690; J1100; J1885; J2250; J2405; J2704; J3010; J3410

== ENCOUNTER → 2024-08-09 08:06 | Outpatient (CLI) | payer OTHER, SELFPAY ==
[2024-08-09 09:24] LABS: HEMOLYSIS < 15 (0-50); Iron 66 ug/dL (49-181)
[2024-08-09 09:35] LABS: Percent Iron Saturation 19 % (20-50); Total Iron Binding Capacity 356 ug/dL (261-462); Transferrin 307 mg/dL (206-381)
[2024-08-09 09:56] LABS: Prostate Specific Antigen Scrn 4.68 ng/mL (0.1-4.0)
[2024-08-09 10:00] LABS: Ferritin 42 ng/mL (18-464)
[2024-08-09 10:15] LABS: Vitamin B12 Reflex MMA if <400 253 pg/mL (239-931)
[2024-08-09 10:22] LABS: Vitamin D 25 Hydroxy (D3) 25.6 ng/mL (30.0-100.0)
== END ==
PROVIDERS: PCP Family Medicine; Referring Provider Family Medicine; Visit Provider Family Medicine
DX: R53.83 Other fatigue (principal); Z12.5 Encounter for screening for malignant neoplasm of prostate
CPT/HCPCS: 82306; 82607; 82728; 83540; 83550; 83921; 84402; 84403; G0103

== ENCOUNTER 2024-08-09 19:55 | Emergency (ER) | payer OTHER, SELFPAY ==
[2024-08-09 20:00] VITALS: BP 155/84; PULSE 77; RESP 16; TEMP 36.6; O2SAT 94
[2024-08-09 20:01] VITALS: BP 156/68; PULSE 81; RESP 18; O2SAT 95; BMI 25.5
[2024-08-09 20:30] VITALS: BP 119/70; PULSE 69; RESP 16; O2SAT 96
--- NOTE | 2024-08-09 20:47 | ED_ITS ---
HPI - General Adult General Chief complaint: Urogenital-Male Stated complaint: catheter problem Time Seen by Provider: 08/09/24 20:10 Source: patient Mode of arrival: EMS History of Present Illness HPI narrative: 58-year-old gentleman who had bilateral inguinal hernia repair laparoscopically earlier this morning. Later in the afternoon he had the sense of a very full bladder was unable to void, Wellington catheter was placed. Significant relief with quite a bit of fluid out. Wellington catheter is left in place. By 6:00 this evening he was complaining again of fullness in the pelvic area, noted that the Wellington was not draining nearly as much and is concerned that there was a problem with the Wellington catheter. He did take 1 of his prescribed pain medications for postoperative pain around 6:00 p.m.. Related Data Previous Rx's ?Medication ?Instructions ?Recorded modafinil 100 mg tablet 100 mg PO QAM #30 tabs 06/30 omeprazole 40 mg capsule,delayed 40 mg PO DAILY #30 ca ps 08/07/24 release hydrocodone 5 mg-acetaminophen 325 1 tab PO Q8H PRN pa in #10 tabs 08/09/24 mg tablet Allergies Allergy/AdvReac Type Severity Reaction Status Date / Time erythromycin base Allergy Unknown Verified 08/09/24 07:54 Patient History Medical History (Updated 08/09/24 @ 20:55 by Lolita Fernández MD) Fatigue GERD (gastroesophageal reflux disease) Anxiety disorder, unspecified Bipolar I disorder, current or most recent episode depressed, in partial remission Social History alcohol intake: never alcohol intake frequency: a few times a month Exam Initial Vital Signs Initial Vital Signs: Vital Signs Pulse Rate 81 08/09/24 20:01 Respiratory Rate 18 08/09/24 20:01 Blood Pressure 156/68 H 08/09/24 20:01 Pulse Oximetry 95 08/09/24 20:01 Oxygen Delivery Method Room Air 08/09/24 20:01 General: Pale, appears somewhat groggy Respiratory: Able to speak in full sentences, no obvious respiratory distress Abdomen: Mild distention consistent with being 8 hours post laparoscopic surgery. No rebound or guarding Skin: Surgical wounds in place with no obvious concerns Neurologic: Grossly intact no obvious asymmetries or abnormalities Psych: appropriate insight and affect, cooperative Bedside ultrasound shows Wellington catheter in the bladder almost entirely drained. No significant pelvic fluid to suggest bleeding or surgical complication is appreciated Course Vital Signs Vital signs: Vital Signs - 8 hr 08/09/24 20:01 Pulse Rate 81 Respiratory Rate 18 Blood Pressure 156/68 H Pulse Oximetry 95 Oxygen Delivery Method Room Air Medical Decision Making MDM Narrative Medical decision making narrative: 58-year-old man with bilateral laparoscopic assisted inguinal hernia with mesh placed earlier this morning. Acute urinary retention presumably from chronic prostate issues and anesthesia. Wellington catheter was placed is draining well. A number of hours later use feeling increasing pelvic floor pain in the sense that he is still needed to void. Concerned that the catheter is not draining as far less urine is coming out. Bedside ultrasound shows completely decompressed bladder appropriately placed Wellington with inflated balloon. No pelvic fluid to suggest other complication. Abdomen is as expected for a number of hours postop. I suspect that the sensation to void that he is experiencing is related to the catheter placement, as well as swelling in the pelvic floor related to recent surgery. He had a number of questions about his prostate, frequent nocturia, incomplete voiding. I suggested that he follow up with his urologist to discuss these chronic prostate issues He currently has a appropriate pain medication, bladder is draining, he has close follow up postop in his safe for discharge home with no need for carmine tional workup or lab studies at this time Discharge Plan Departure Patient Disposition: Home Clinical Impression: Acute urinary retention, Post-operative pain Instructions: DI for Urinary Retention in Men Activity Restrictions/Additional Instructions: Thank you for coming in today You mentioned some chronic prostate issues, given the fact that the anesthetic that you had today likely cause this acute urinary retention I would recommend that you talk to your primary care doctor about a urology referral to discuss your prostate issues In the meantime, your Wellington catheter is currently working appropriately. An ultrasound that we did in the emergency department shows the balloon is infla bisi, in your bladder, there was minimal urine in your bladder, there is no extra blood or other complication down around her bladder to suggest further problems. I suspect that is sense that you are having to void is related to swelling after your surgery, having the Wellington catheter in place and prostate discomfort. Please do continue to use the hydrocodone/acetaminophen that you were given for postop pain Please carefully looked through your surgery discharge instructions to see what they recommended for follow up and went to have the Wellington catheter removed In looking at the surgical note, you did have both inguinal hernias repaired with mesh placed. If you find that you are getting worse or develop any new symptoms, please feel free to return to the emergency department for further evaluation. Prescriptions: No Action modafinil 100 mg tablet 100 mg PO QAM Qty: 30 0RF omeprazole 40 mg capsule,delayed release(DR/EC) 40 mg PO DAILY Qty: 30 3RF hydrocodone-acetaminophen 5-325 mg tablet 1 tab PO Q8H PRN (Reason: pain) Qty: 10 0RF Referrals: Edgar Saenz MD [Primary Care Provider, Family Practice] Stand Alone Forms: Patient Portal/API
== END 2024-08-09 21:07 | disposition home or self-care (01) ==
PROVIDERS: Emergency Provider Emergency Medicine; PCP Family Medicine
DX: R33.8 Other retention of urine (principal); G89.18 Other acute postprocedural pain
CPT/HCPCS: 51798; 99282

== ENCOUNTER 2024-09-30 19:48 | Emergency (ER) | payer OTHER, SELFPAY ==
[2024-09-30] VITALS (9 sets, daily range): BP systolic 120–144; BP diastolic 70–84; PULSE 78–95; RESP 16; TEMP 36.9; O2SAT 94–99; BMI 25.4
--- NOTE | 2024-09-30 19:51 | ED.BACK ---
HPI - Back Pain/Injury General Chief Complaint: Back Pain/Injury Stated Complaint: Back/Flank Pain Time Seen by Provider: 09/30/24 19:50 History of Present Illness HPI Narrative: Patient is a 58-year-old male history bipolar type 1, comes into the ED from home for evaluation of bilateral flank pain/side pain, states it has been ongoing persistent for the past several months, states it has been intermittent nature, states this is the 3rd incident in which he has been having left-sided ?side stitch pain states it starts his left into his right, states that nothing makes the pain better or worse, but he has been using a heating pad to his back to help with the symptoms but states that this has not been helping therefore decided come into the ED for further evaluation treatment. He denies any other symptoms such as headache visual disturbances chest pain shortness breath fever chills nausea vomiting abdominal pain or any other GI/ symptoms time. Patient also stating that he has noticed some discoloration to his back Related Data Previous Rx's ?Medication ?Instructions ?Recorded omeprazole 40 mg capsule,delayed 40 mg PO DAILY #30 caps 08/07/24 release hydrocodone 5 mg-acetaminophen 325 1 tab PO Q8H PRN pain #10 tabs 08/09/24 mg tablet tamsulosin 0.4 mg capsule (Flomax) 0.4 mg PO BEDTIME #90 caps 08/10/24 modafinil 200 mg tablet 200 mg PO QAM #30 tabs 09/06/24 diazepam 2 mg tablet (Valium) 2 mg PO BEDTIME PRN muscle spasm 5 09/30/24 days #5 tabs naproxen 500 mg tablet (Naprosyn) 500 mg PO BID PRN pain 1 week #14 09/30/24 tabs Allergies Allergy/AdvReac Type Severity Reaction Status Date / Time erythromycin base AdvReac Intermediate Did not Verified 09/30/24 20:[address] it made me feel Review of Systems Review of Systems Narrative: General: Denies fever, chills, weight loss HEENT: Denies headache, eye drainage, eye irritation, head trauma, sore throat, voice change Cardiovascular: Denies any chest pain, palpitations, tachycardia Respiratory: Denies any shortness of breath, cough, wheeze, stridor GI/: Positive Bilateral flank pain, Denies any abdominal pain, nausea, vomiting, diarrhea, bright red blood per rectum, melanotic stools, urinary frequency, urinary retention, dysuria, hematuria MSK: Denies any joint pain, muscle pains, swelling Skin: Discoloration to the back this lumbar region Neuro: Denies any headache, lightheadedness, dizziness, fainting, weakness Psych: Denies SI/HI Patient History Medical History (Updated 09/30/24 @ 21:54 by José Valenzuela DO) Fatigue GERD (gastroesophageal reflux disease) Anxiety disorder, unspecified Bipolar I disorder, current or most recent episode depressed, in partial remission Social History alcohol intake: never alcohol intake frequency: a few times a month Exam Narrative Exam Narrative: General: Cooperative, well-developed, not in acute distress HEENT: Normocephalic, atraumatic, PERRLA, normal sclera, eyelids normal Neck: Active full range of motion, atraumatic Chest: Normal to inspection, negative crepitus, no overlying erythema ecchymosis Respiratory: Normal respiratory effort, not in acute respiratory distress, clear to auscultation bilaterally negative cough, wheeze, tachypnea, rhonchi, rales Cardiology: Regular rate rhythm negative gallop, murmur, rubs GI/: No tenderness to palpation, soft, non rigid, normal to inspection, exam deferred MSK: Full active range of motion in all 4 extremities, atraumatic, no tenderness to palpation of any bony prominences Skin: There does appear to be erythema ab igne consistent with heating pad to his lumbar region, this is blanchable no erythema or other gross deformity Neuro: Alert awake oriented x3, moves all 4 extremities spontaneously, cranial nerves intact, able to answer all questions appropriately follows commands appropriately Psych: Cooperative, negative suicidal or homicidal ideations Initial Vital Signs Initial Vital Signs: Vital Signs Temperature 98.4 F 09/30/24 19:50 Pulse Rate 95 H 09/30/24 19:50 Respiratory Rate 16 09/30/24 19:50 Blood Pressure 144/79 H 09/30/24 19:50 Pulse Oximetry 95 09/30/24 19:50 Oxygen Delivery Method Room Air 09/30/24 19:50 Course Orders Ordered: ED Orders 09/30/24 19:58 CT abdomen pelvis w con Stat 09/30/24 20:00 Complete Blood Count AUTO DIFF Stat Comprehensive Metabolic Panel Stat Lipase Stat MAG [Magnesium] Stat Discontinued Medications Sodium Chloride (Normal Saline 0.9%) 1,000 mls @ 1,000 mls/hr IV BOLUS ONE Stop: 09/30/24 20:57 Last Infusion: 09/30/24 21:10 Dose: Infused Documented By: Admin: 09/30/24 20:21 Dose: 1,000 mls/hr Documented By: ELVIN Morphine Sulfate (Morphine 4 Mg/Ml Inj) 4 mg IV NOW ONE Stop: 09/30/24 19:59 Last Admin: 09/30/24 20:13 Dose: 4 mg Documented By: ELVIN Ondansetron HCl (Ondansetron 4 Mg/2 Ml Inj) 4 mg IV NOW ONE Stop: 09/30/24 19:59 Last Admin: 09/30/24 20:20 Dose: 4 mg Documented By: ELVIN Vital Signs Vital signs: Vital Signs - 8 hr 09/30/24 19:50 09/30/24 19:57 09/30/24 20:00 Temperature 98.4 F Pulse Rate 95 H 95 H 95 H Respiratory Rate 16 Blood Pressure 144/79 H Pulse Oximetry 95 94 95 Oxygen Delivery Method Room Air 09/30/24 20:04 09/30/24 20:04 09/30/24 20:19 Temperature Pulse Rate 94 H 90 Respiratory Rate 16 Blood Pressure 125/78 Pulse Oximetry 94 95 Oxygen Delivery Method 09/30/24 20:19 09/30/24 20:30 09/30/24 20:30 Temperature Pulse Rate 82 Respiratory Rate 16 Blood Pressure 127/84 126/82 Pulse Oximetry 94 Oxygen Delivery Method 09/30/24 21:00 09/30/24 21:00 Temperature Pulse Rate 79 Respiratory Rate 16 Blood Pressure 137/83 Pulse Oximetry 99 Oxygen Delivery Method MDM - Back Pain/Injury Differential Diagnosis Differential diagnosis: Likely other (Muscle spasm, pyelonephritis, urinary tract infection, urolithiasis, electrolyte abnormality) Lab Data 09/30/24 20:00 09/30/24 20:00 Labs: Lab Results 09/30/24 Range/Units 20:00 WBC 8.3 (4.5-11.0) X10^3/uL RBC 4.23 L (4.5-5.9) X10^6/uL Hgb 12.5 L (13.5-17.5) g/dL Hct 36.0 L (41-53) % MCV 85.0 (80-100) fL MCH 29.6 (26-34) PG MCHC 34.9 (30-36) % RDW 13.4 (11.6-14.8) % Plt Count 244 (150-400) X10^3/uL Neut % (Auto) 71.7 (50-75) % Lymph % (Auto) 19.0 L (25-40) % Garrard % (Auto) 7.6 (3-14) % Eos % (Auto) 1.0 L (2-4) % Baso % (Auto) 0.7 (0-2) % Neut # (Auto) 6000 (9759-4091) /uL Lymph # (Auto) 1600 (1326-9837) /uL Garrard # (Auto) 600 (0-900) /uL Eos # (Auto) 100 (0-450) /uL Baso # (Auto) 100 (0-100) /uL Sodium 137 (137-145) mmol/L Potassium 4.3 (3.4-5.1) mmol/L Chloride 102 (98-107) mmol/L Carbon Dioxide 26 (22-32) mmol/L BUN 15 (9-20) mg/dL Creatinine 1.02 (0.66-1.25) mg/dL Estimated GFR > 60 (>60) mL/min BUN/Creatinine Ratio 14.7 (6-22) Glucose 102 H (70-99) mg/dL Calcium 9.4 (8.4-10.2) mg/dL Magnesium 1.7 (1.6-2.3) mg/dL Total Bilirubin 0.6 (0.2-1.3) mg/dL AST 27 (17-59) IU/L ALT 14 (<50) IU/L Alkaline Phosphatase 54 (38-126) U/L Total Protein 7.6 (6.3-8.2) g/dL Albumin 4.2 (3.5-5.0) g/dL Globulin 3.4 (1.7-4.1) g/dL Albumin/Globulin Ratio 1.2 (1.0-2.8) Lipase 135 (23-300) U/L Imaging Data CT scan - abdomen/pelvis: Radiologist's Impression: [address] [address] [address] Scan Report Signed Patient: Ilir Clark MR#: [id number] : 1965 Acct:[id number] Age/Sex: 58 / M Date of Service: 09/30/24 Loc: ED Accession Number: [id number] Procedure: CT abdomen pelvis w con Ordering Provider: José Valenzuela D.O. PROCEDURE: CT ABDOMEN PELVIS W CON INDICATIONS: B/L flank pain TECHNIQUE: After the administration of intravenous contrast, axial sections acquired from the lung bases to the pubic symphysis. Coronal and sagittal reformats were performed. For radiation dose reduction, the following was used: automated exposure control, adjustment of mA and/or kV according to patient size. COMPARISON: [facility], CT, CT ABDOMEN PELVIS W CON, 10/26/2022, 15:26. FINDINGS: Image quality: Diagnostic. Lower Chest: There is a small left-sided pleural effusion, with a trace right-sided pleural effusion. The right lung base, there is a subpleural pulmonary cyst seen. Mild dependent atelectasis is seen. ABDOMEN: Liver: No solid mass is seen. There is a left-sided pulmonary cysts. Gallbladder: No radiopaque gallstones or wall thickening. Biliary ducts: No biliary dilation. Pancreas: No ductal dilation. Spleen: Size is within normal limits. Adrenal Glands: No adrenal nodules. Kidneys and Ureters: No hydronephrosis. No solid mass. No complex renal cystic lesion which requires follow up. Stomach and Bowel: Normal colonic caliber, without significant wall thickening. No dilated loops of small bowel are seen. The A normal appendix is noted. Peritoneum: No abnormal intraperitoneal fluid. No free air. Ventral Wall: A mild periumbilical hernia is seen, containing fat. Abdominal Nodes: No retroperitoneal or mesenteric adenopathy by size criteria. Vessels: Aorta and inferior vena cava are normal in size. Atherosclerotic calcification is noted. PELVIS: Pelvic Organs: The prostate is enlarged, measuring 4.8 cm. Bladder: The bladder is decompressed, which limits its evaluation. Mild generalized bladder wall thickening is seen, to bladder outlet obstruction in a patient of this age. Pelvic Nodes: No enlarged lymph nodes. Miscellaneous: Bilateral fat containing inguinal hernias can be seen, small Bones: No aggressive osseous abnormality. IMPRESSION: Negative for hydronephrosis on either side. No stones are seen. There is a small left-sided pleural effusion and a trace right-sided pleural effusion. MDM Narrative Medical decision making narrative: Patient is a 58-year-old male presenting for bilateral flank pain ongoing persistent for the past several weeks, states that it feels like a cramp, states that it starts to the left than migraines to the right, currently stating that he just feels sore, states that he has been using a heating pad to help with the pain but still has not therefore decided come into the ED for further evaluation treatment. On exam skin of the lumbar region does appear to be consistent with erythema Ab igne given patient having used heating pad, patient had lab work imaging urinalysis performed here in the emergency department. Patient's lab work without any leukocytosis, Chem panel unremarkable, CT abdomen and pelvis showing small left-sided pleural effusion and trace right-sided pleural effusion, however patient having pain/discomfort more to the lower abdomen rather than to the chest, patient is not complaining of any chest pain shortness breath he is not requiring any supplemental oxygen I do not believe this is contributing to the patient's symptoms at this time, however did inform patient to have this followed up at his primary care office. I will provide patient with muscle relaxers and anti-inflammatories to help with the symptoms. Patient verbalized understanding of this and agrees to being discharged home with outpatient follow up Discharge Plan Departure Patient Disposition: Home Clinical Impression: Abdominal pain Activity Restrictions/Additional Instructions: Please follow up with the primary care doctor Please read the discharge instructions sheet carefully and bring all papers to all doctor follow-up visits, as it may contain information that your doctor may want to see. Disease processes change and evolve, if your symptoms worsen or if you develop any new symptoms that are concerning to you please return for evaluation. Your evaluation today does not show any evidence of any life-threatening/serious illnesses requiring admission to the hospital or surgery. Please follow-up with your doctor for re-evaluation in approximately 1 day. Seek immediate medical attention for any worrisome symptoms. *If you do not have a primary care provider please contact the [facility] Resource line at [phone]. They will ask some questions about your medical history and help get you set up with a doctor in the community. Prescriptions: New naproxen [Naprosyn] 500 mg tablet 500 mg PO BID PRN (Reason: pain) 7 Days Qty: 14 0RF diazepam [Valium] 2 mg tablet 2 mg PO BEDTIME PRN (Reason: muscle spasm) 5 Days Qty: 5 0RF No Action modafinil 200 mg tablet 200 mg PO QAM Qty: 30 1RF omeprazole 40 mg capsule,delayed release(DR/EC) 40 mg PO DAILY Qty: 30 3RF tamsulosin [Flomax] 0.4 mg capsule 0.4 mg PO BEDTIME Qty: 90 0RF hydrocodone-acetaminophen 5-325 mg tablet 1 tab PO Q8H PRN (Reason: pain) Qty: 10 0RF Referrals: Edgar Saenz MD [Primary Care Provider, Family Practice] Stand Alone Forms: Patient Portal/API
--- NOTE | 2024-09-30 19:58 | DI.CT.S_ITS ---
PROCEDURE: CT ABDOMEN PELVIS W CON INDICATIONS: B/L flank pain TECHNIQUE: After the administration of intravenous contrast, axial sections acquired from the lung bases to the pubic symphysis. Coronal and sagittal reformats were performed. For radiation dose reduction, the following was used: automated exposure control, adjustment of mA and/or kV according to patient size. COMPARISON: [facility], CT, CT ABDOMEN PELVIS W CON, 10/26/2022, 15:26. FINDINGS: Image quality: Diagnostic. Lower Chest: There is a small left-sided pleural effusion, with a trace right- sided pleural effusion. The right lung base, there is a subpleural pulmonary cyst seen. Mild dependent atelectasis is seen. ABDOMEN: Liver: No solid mass is seen. There is a left-sided pulmonary cysts. Gallbladder: No radiopaque gallstones or wall thickening. Biliary ducts: No biliary dilation. Pancreas: No ductal dilation. Spleen: Size is within normal limits. Adrenal Glands: No adrenal nodules. Kidneys and Ureters: No hydronephrosis. No solid mass. No complex renal cystic lesion which requires follow up. Stomach and Bowel: Normal colonic caliber, without significant wall thickening. No dilated loops of small bowel are seen. The A normal appendix is noted. Peritoneum: No abnormal intraperitoneal fluid. No free air. Ventral Wall: A mild periumbilical hernia is seen, containing fat. Abdominal Nodes: No retroperitoneal or mesenteric adenopathy by size criteria. Vessels: Aorta and inferior vena cava are normal in size. Atherosclerotic calcification is noted. PELVIS: Pelvic Organs: The prostate is enlarged, measuring 4.8 cm. Bladder: The bladder is decompressed, which limits its evaluation. Mild generalized bladder wall thickening is seen, to bladder outlet obstruction in a patient of this age. Pelvic Nodes: No enlarged lymph nodes. Miscellaneous: Bilateral fat containing inguinal hernias can be seen, small Bones: No aggressive osseous abnormality. IMPRESSION: Negative for hydronephrosis on either side. No stones are seen. There is a small left-sided pleural effusion and a trace right-sided pleural effusion. Additional findings: Right lung base pulmonary cyst Left-sided liver cyst Normal appendix Enlarged prostate, with likely bladder outlet obstruction Bilateral fat containing hernias Dictated by: John Perez M.D. on 09/30/2024 at 19:28 Approved by: John Perez M.D. on 09/30/2024 at 19:32
[2024-09-30 20:11] LABS: Add Manual Diff / Slide Review NO; Hematocrit 36.0 % (41-53); Hemoglobin 12.5 g/dL (13.5-17.5); Lymphocytes Absolute Auto 1600 /uL (1100-4500); Mean Corpuscular HGB Conc 34.9 % (30-36); Mean Corpuscular Hemoglobin 29.6 PG (26-34); Mean Corpuscular Volume 85.0 fL (80-100); Platelet Count 244 X10^3/uL (150-400)
[2024-09-30] MEDS: MORPHINE 4 MG/ML INJ IV (20:13)
[2024-09-30] MEDS: ONDANSETRON 4 MG/2 ML INJ IV (20:20)
[2024-09-30 20:21] LABS: Alanine Aminotransferase 14 IU/L (<50); Albumin 4.2 g/dL (3.5-5.0); Albumin Globulin Ratio 1.2 (1.0-2.8); Alkaline Phosphatase 54 U/L (38-126); Blood Urea Nitrogen 15 mg/dL (9-20); Calcium 9.4 mg/dL (8.4-10.2); Carbon Dioxide 26 mmol/L (22-32); Chloride 102 mmol/L (98-107); Estimated Glomerular Filt Rate > 60 mL/min (>60); Globulin 3.4 g/dL (1.7-4.1); Glucose 102 mg/dL (70-99); Lipase 135 U/L (23-300); Magnesium 1.7 mg/dL (1.6-2.3); Sodium 137 mmol/L (137-145); Total Protein 7.6 g/dL (6.3-8.2)
[2024-09-30] MEDS: SODIUM CHLORIDE 0.9% 1,000 ML 1000 ML IV (20:21)
[2024-09-30 20:22] LABS: HEMOLYSIS 77 (0-50); Potassium 4.3 mmol/L (3.4-5.1)
== END 2024-09-30 22:32 | disposition home or self-care (01) ==
PROVIDERS: Emergency Provider Student in an Organized Health Care Education/Training Program; PCP Family Medicine
DX: R10.9 Unspecified abdominal pain (principal)
CPT/HCPCS: 36415; 74177; 80053; 81003; 83690; 83735; 85025; 96361; 96374; 96375; 99284; J2270; J2405; Q9967

== ENCOUNTER → 2024-10-04 13:14 | Outpatient (CLI) | payer OTHER, SELFPAY | PROVIDERS: PCP Family Medicine; Referring Provider Family Medicine; Visit Provider Family Medicine | DX: R79.89 Other specified abnormal findings of blood chemistry (principal); R53.83 Other fatigue; Z12.5 Encounter for screening for malignant neoplasm of prostate; R97.20 Elevated prostate specific antigen [PSA] | CPT/HCPCS: 36415; 84402; 84403; G0103 ==

== ENCOUNTER → 2025-01-25 14:29 | Outpatient (CLI) | payer OTHER, SELFPAY ==
[2025-01-25 17:24] LABS: Prostate Specific Antigen 6.68 ng/mL (0.10-4.00)
== END ==
PROVIDERS: PCP Family Medicine; Referring Provider Family Medicine; Visit Provider Urology
DX: R53.83 Other fatigue (principal); R97.20 Elevated prostate specific antigen [PSA]
CPT/HCPCS: 36415; 84153; 84402; 84403